=== PATIENT | male | born 1955 | race Caucasian/White ===

== ENCOUNTER 2016-08-11 07:56 | Observation (INO) | payer BC ==
[2016-08-11] MEDS ORDERED: Prochlorperazine TAB* 10 MG PO PRN ×2 (10:26→17:47)
[2016-08-11] MEDS ORDERED: LORazepam TAB(*) 0.5 MG PO PRN (10:26)
[2016-08-11] MEDS ORDERED: Acetaminophen TAB* 325 MG PO PRN (10:26)
[2016-08-11] MEDS ORDERED: Ondansetron TAB* 4 MG PO PRN (10:26)
[2016-08-11] MEDS ORDERED: Temazepam CAP* 15 MG PO PRN (10:30)
[2016-08-11] MEDS ORDERED: Enoxaparin(*) 40 MG/0.4 ML SYR SUBCUT SCH (11:00)
[2016-08-11] MEDS ORDERED: NS 0.9% IVPB ONE (14:00)
[2016-08-11] MEDS ORDERED: IFOSFAMIDE IVPB ONE (14:00)
[2016-08-11] MEDS ORDERED: MESNA IVPB ONE (14:00)
[2016-08-11] MEDS: Enoxaparin(*) 40 MG/0.4 ML SYR SUBCUT SCH (15:22)
[2016-08-11] MEDS ORDERED: Ondansetron INJ* 2 MG/ML VIAL IV PRN (17:47)
[2016-08-11] MEDS: Simethicone TAB* 80 MG TAB.CHEW PO PRN (20:58)
[2016-08-11] MEDS: NS 0.9% 1000 ML* 1,000 ML IV SCH (20:59)
[2016-08-12] MEDS ORDERED: Prochlorperazine TAB* 10 MG PO PRN (04:35)
[2016-08-12] MEDS: NS 0.9% 1000 ML* 1,000 ML IV SCH ×2 (04:44→11:28)
[2016-08-12 06:18] LABS: Hematocrit 34 % (42-52); Hemoglobin 11.7 g/dl (14.0-18.0); Mean Corpuscular HGB Conc 34 g/dl (31-36); Mean Corpuscular Hemoglobin 29 pg (27-31); Mean Corpuscular Volume 85 fL (80-94); Mean Platelet Volume 7 um3 (7.4-10.4); Red Blood Count 4.02 10^6/ul (4.0-5.4); Red Cell Distribution Width 15 % (10.5-15); White Blood Count 4.6 10^3/ul (3.5-10.8)
[2016-08-12 06:42] LABS: Albumin 3.4 g/dL (3.2-5.2); BUN/Creatinine Ratio 18.7 (8-20); EGFR African American 109.3 (>60); Globulin 1.8 g/dL (2-4); Potassium 3.8 mmol/L (3.5-5.0); Total Bilirubin 0.7 mg/dL (0.2-1.0); Total Protein 5.2 g/dL (6.4-8.9)
[2016-08-12] MEDS ORDERED: Allopurinol TAB* 100 MG PO SCH (09:00)
[2016-08-12] MEDS ORDERED: Sertraline* 50 MG TAB PO SCH (09:00)
[2016-08-12] MEDS ORDERED: Lisinopril TAB* 10 MG PO SCH (09:00)
--- NOTE | 2016-08-12 09:42 | PN ---
Progress Note - Progress Note SOAP: DISCHARGE NOTE Subjective: [Doing well and tolerated chemotherapy last night. Mild nausea. Did not sleep well. No fevers. Acetaminophen (Tylenol Tab*) 650 mg PO BID PRN PRN Reason: PAIN Allopurinol (Zyloprim Tab*) 100 mg PO DAILY [facility] Enoxaparin Sodium (Lovenox(*)) 40 mg SUBCUT 1500 ANAID Last Admin: 08/11/16 15:22 Dose: 40 mg Ifosfamide 13,700 mg/ Mesna 13 (,700 mg/ Sodium Chloride) 1,000 mls @ 41.667 mls/hr IVPB ONCE ONE Stop: 08/12/16 13:59 Last Admin: 08/11/16 14:30 Dose: 41.667 mls/hr Etoposide 762 mg/ Sodium (Chloride) 788.1 mls @ 788.1 mls/hr IVPB ONCE ONE Stop: 08/12/16 14:59 Dexamethasone Sodium Phosphate (8 mg/ Sodium Chloride) 52 mls @ 156 mls/hr IVPB ONCE ONE Stop: 08/12/16 11:19 Sodium Chloride (Ns 0.9% 1000 Ml*) 1,000 mls @ 1,000 mls/hr IV .POST IFOS/ MESNA ONE Stop: 08/12/16 11:59 Sodium Chloride (Ns 0.9% 1000 Ml*) 1,000 mls @ 150 mls/hr IV .PER RATE ANAID PRN Reason: Protocol Last Admin: 08/12/16 04:44 Dose: 150 mls/hr Lisinopril (Prinivil Tab*) 10 mg PO DAILY [facility] Lorazepam (Ativan Tab(*)) 0.5 mg PO BID PRN PRN Reason: ANXIETY Ondansetron HCl (Zofran Tab*) 4 mg PO Q6HR PRN PRN Reason: NAUSEA Ondansetron HCl (Zofran Inj*) 8 mg IV Q8H PRN PRN Reason: NAUSEA/VOMITING Prochlorperazine (Compazine Tab*) 10 mg PO Q6H PRN PRN Reason: NAUSEA/VOMITING Sertraline HCl (Zoloft*) 50 mg PO DAILY [facility] Simethicone (Mylicon*) 80 mg PO Q6H PRN PRN Reason: INDIGESTION Last Admin: 08/11/16 20:58 Dose: 80 mg Temazepam (Restoril Cap*) 15 mg PO BEDTIME PRN PRN Reason: INSOMNIA Objective: [] Vital Signs Temp Pulse Resp BP Pulse Ox 98.1 F 56 16 164/84 100 08/12/16 08:18 08/12/16 03:45 08/12/16 03:45 08/12/16 03:45 08/12/16 03:45 HEENT - Mucosa moist CTA RRR S1S2 Obese, non tender No edema Neuro non focal Assessment: []Doing well today and will complete therapy at 5 pm Plan: []1. Discharge after etoposide and hydration 2. Neupogen tomorrow, has had instruction 3. Follow up Monday.
[2016-08-12] MEDS ORDERED: Dexamethasone IV* 8 MG in NS 0.9% 50 ML* 50 ML IVPB ONE (11:00)
[2016-08-12] MEDS ORDERED: NS 0.9% 1000 ML* 1,000 ML IV ONE (11:00)
[2016-08-12] MEDS ORDERED: Dexamethasone IV* 4 MG/ML 1 ML (4 MG) ONE (11:25)
[2016-08-12] MEDS ORDERED: ETOPOSIDE IVPB ONE ×2 (14:00→15:00)
[2016-08-12] MEDS ORDERED: NS 0.9% IVPB ONE ×2 (14:00→15:00)
[2016-08-12] MEDS: Enoxaparin(*) 40 MG/0.4 ML SYR SUBCUT SCH (14:48)
[2016-08-12] MEDS: Simethicone TAB* 80 MG TAB.CHEW PO PRN (14:49)
[2016-08-12 16:57] VITALS: BP 151/85
--- NOTE | 2016-08-13 05:56 | DS ---
DISCHARGE SUMMARY: DATE OF ADMISSION: 08/11/16 DATE OF DISCHARGE: 08/12/16 DISCHARGE DIAGNOSES: 1. RICE chemotherapy. 2. Recurrent diffuse large B-cell lymphoma. HOSPITAL COURSE: He came in for the overnight infusion of ifosfamide, mesna, and carboplatin as par t of his RICE regimen. He had been treated with rituximab on day -2, then etoposide yesterday, demario early was followed by admission for ifosfamide and carboplatin overnight. He will finish around 2:30 p. m. and then have his last dose of etoposide this evening. PLAN: He will be discharged around 5:30 p.m. He will start taking Neupogen tomorrow morning. He tolerated chemotherapy overnight well. No complications. Minor nausea. DISCHARGE MEDICATIONS: 1. Allopurinol 100 mg p.o. daily. 2. Compazine 10 mg q. 6 p.r.n. 3. Zofran 4 mg q. 6 p.r.n. 4. Zoloft 50 mg p.o. daily. 5. Lorazepam 0.5 mg q. 6 p.r.n. anxiety. 6. Lisinopril 10 mg p.o. daily. 7. Neupogen 490 mcg p.o. daily from the to the . FOLLOWUP: Followup will be with me on 08/16/16, 2:20 p.m. at our [place] office. Over the weekend, she should call with any questions or concerns. [id number]/[facility] #: [id number]
== END 2016-08-12 18:00 | disposition home or self-care (01) ==
LOC: INTOOBSV 13:29 → MED 13:29
PROVIDERS: ADMIT Internal Medicine Hematology & Oncology; ATTEND Internal Medicine Hematology & Oncology
DX: C83.30 Diffuse large B-cell lymphoma, unspecified site (principal); Z88.1 Allergy status to other antibiotic agents; F32.9 Major depressive disorder, single episode, unspecified; E66.9 Obesity, unspecified; G47.30 Sleep apnea, unspecified
CPT/HCPCS: 36415; 80053; 85025; 96375; 96413; 96417; 99217; 99220; 99226; A9270-GY; G0378; J1100; J1650; J2405; J9181; J9209; J9280; Q0164

== ENCOUNTER 2016-08-20 14:41 | Inpatient (IN) | payer BC ==
[2016-08-20 16:46] LABS: Hematocrit 37 % (42-52); Hemoglobin 12.5 g/dl (14.0-18.0); Mean Corpuscular HGB Conc 34 g/dl (31-36); Mean Corpuscular Hemoglobin 28 pg (27-31); Mean Corpuscular Volume 83 fL (80-94); Mean Platelet Volume 8 um3 (7.4-10.4); Red Blood Count 4.44 10^6/ul (4.0-5.4); Red Cell Distribution Width 14 % (10.5-15); White Blood Count 0.5 10^3/ul (3.5-10.8)
[2016-08-20 17:00] LABS: Albumin 4.2 g/dL (3.2-5.2); BUN/Creatinine Ratio 13.7 (8-20); C Reactive Protein 149.66 mg/L (< 5.00); Calcium 8.8 mg/dL (8.6-10.3); EGFR Non-African American 80.9 (>60); Globulin 2.6 g/dL (2-4); Potassium 3.2 mmol/L (3.5-5.0); Total Bilirubin 0.7 mg/dL (0.2-1.0); Total Protein 6.8 g/dL (6.4-8.9)
[2016-08-20 17:01] LABS: Troponin I 0.01 ng/mL (<0.04)
[2016-08-20] MEDS ORDERED: Potassium Chlor TAB* 20 MEQ TAB.ER PO ONE (17:02)
[2016-08-20 17:20] LABS: Urine Bacteria Absent (Absent); Urine Bilirubin Negative (Negative); Urine Glucose 1+(50 mg/dL) (Negative); Urine Nitrite Negative (Negative)
[2016-08-20 17:21] LABS: Comments Flag Yes
[2016-08-20 17:22] LABS: Add Diff/Slide Review? Slide Review Added
--- NOTE | 2016-08-20 17:22 | RAD ---
INDICATION: Fever since this afternoon. Cough. Respiratory disease and cardiac disease. COMPARISON: June 29, 2016 CT. TECHNIQUE: Dual energy PA and routine lateral views of the chest were obtained. REPORT: Mildly elevated lung volumes. Mild prominence of the interstitial markings. No alveolar consolidation, focal pulmonary lesion, pleural effusion, pneumothorax. The heart, pulmonary vasculature, and mediastinal contours are unremarkable. Thoracic degenerative spondylosis. IMPRESSION: Stigmata of probable chronic obstructive pulmonary disease. No acute cardiopulmonary process evident.
[2016-08-20] MEDS ORDERED: cefTAZidime 2 GM in NS 0.9% 100 ML* 100 ML IVPB ONE (17:29)
--- NOTE | 2016-08-20 17:34 | ED ---
Abelardo Najera Karl, scribed for Wilfredo Chapman MD on 08/20/16 at 1548 . HPI Febrile Illness - HPI Summary HPI Summary: 60 y/o M presents with c/o a fever and runny nose that began this afternoon. Pt reported that he is a cancer pt with Dr. Cordoba and has had a fever (t-max: 102.2 F) since this afternoon so he was told to report to the ED. Pt stated he finished his last chemo treatment 1 week ago and that he tool Tylenol at 12:30 to control his fever. Pt denied diarrhea and abd pain. Hx: HTN, large B-cell Lymphoma. - History of Current Complaint Chief Complaint: EDFever Time Seen by Provider: 08/20/16 15:44 Hx Obtained From: Patient Onset/Duration: Started Days Ago, Atraumatic, Still Present Timing: Constant Initial Severity: Mild Current Severity: Mild Pain Intensity: 0 - pain Pain Scale Used: 0-10 Numeric Aggravating Factors: Unknown Alleviating Factors: OTC Medicine - Tylenol - Additional Pertinent History Primary Care Physician: VIJAY - Allergy/Home Medications Allergies/Adverse Reactions: Allergies Allergy/AdvReac Type Severity Reaction Status Date / Time Ciprofloxacin Allergy Unknown Unknown Verified 08/20/16 15:01 Reaction Details PMH/Surg Hx/FS Hx/Imm Hx Previously Healthy: No Endocrine/Hematology History: Reports: Hx Bone Marrow Disease - 2009 & 2012, CHEMO Denies: Hx Diabetes Cardiovascular History: Reports: Hx Hypertension - ON DAILY MEDS, Other Cardiovascular Problems/Disorders - DX'D W/HEART MURMUR A CHILD, NO SX Respiratory History: Reports: Hx Sleep Apnea - Cpap History: Denies: Hx Dialysis, Hx Renal Disease Musculoskeletal History: Reports: Hx Arthritis - OSTEOARTHRITIS: KNEES, BACK Sensory History: Reports: Hx Contacts or Glasses Opthamlomology History: Reports: Hx Contacts or Glasses Neurological History: Reports: Other Neuro Impairments/Disorders - 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 2012 UPPER RT ARM BIOPSY, POWERPORT INSERSION. 05/2016 POWER PORT REMOVED [facility] Hx Anesthesia Reactions: No - 1999 WOKE UP WITH LOW BP Infectious Disease History: No Infectious Disease History: Denies: Traveled Outside the [place] in Last 30 Days - Family History Known Family History: Positive: Other - [place] - Social History Alcohol Use: Rare Alcohol Amount: USUALLY 1-2 /WK Substance Use Type: Reports: None Hx Tobacco Use: Yes Smoking Status (MU): Former Smoker Type: Cigarettes Amount Used/How Often: 1PPD 20 YRS Have You Smoked in the Last Year: No Review of Systems Positive: Fever - T-max 102.2 F Eyes: Negative Positive: Nasal Discharge Cardiovascular: Negative Respiratory: Negative Negative: Abdominal Pain, Diarrhea Genitourinary: Negative Musculoskeletal: Negative Skin: Negative Neurological: Negative Psychological: Normal All Other Systems Reviewed And Are Negative: Yes Physical Exam - Summary Physical Exam Summary: VITAL SIGNS: Reviewed. GENERAL: Patient is an obese male who is lying comfortable in the stretcher. Patient is not in any acute respiratory distress. HEAD AND FACE: No signs of trauma. No ecchymosis, hematomas or skull depressions. No sinus tenderness. EYES: PERRLA, EOMI x 2, No injected conjunctiva, no nystagmus. EARS: Hearing grossly intact. Ear canals and tympanic membranes are within normal limits. MOUTH: Oropharynx within normal limits. NECK: Supple, trachea is midline, no adenopathy, no JVD, no carotid bruit, no c- spine tenderness, neck with full ROM. CHEST: Symmetric, no tenderness at palpation LUNGS: Clear to auscultation bilaterally. No wheezing or crackles. CVS: Regular rate and rhythm, S1 and S2 present, no murmurs or gallops appreciated. ABDOMEN: Soft, non-tender. No signs of distention. No rebound no guarding, and no masses palpated. Bowel sounds are normal. EXTREMITIES: FROM in all major joints, no edema, no cyanosis or clubbing. NEURO: Alert and oriented x 3. No acute neurological deficits. Speech is normal and follows commands. SKIN: Dry and warm Triage Information Reviewed: Yes Vital Signs On Initial Exam: Initial Vitals Temp Pulse Resp BP Pulse Ox 97.8 F 81 18 155/88 100 08/20/16 14:45 08/20/16 14:45 08/20/16 14:45 08/20/16 14:45 08/20/16 14:45 Vital Signs Reviewed: Yes Diagnostics - Vital Signs Vital Signs Temp Pulse Resp BP Pulse Ox 08/20/16 14:45 97.8 F 81 18 155/88 100 - Laboratory Lab Results: Lab Results 08/20/16 08/20/16 Range/Units 16:22 16:22 Sodium 132 L (133-145) mmol/L Potassium 3.2 L (3.5-5.0) mmol/L Chloride 97 L (101-111) mmol/L Carbon Dioxide 28 (22-32) mmol/L Anion Gap 7 (2-11) mmol/L BUN 13 (6-24) mg/dL Creatinine 0.95 (0.67-1.17) mg/dL Est GFR ( Amer) 104.0 (>60) Est GFR (Non-Af Amer) 80.9 (>60) BUN/Creatinine Ratio 13.7 (8-20) Glucose 113 H (70-100) mg/dL Lactic Acid 1.5 (0.5-2.0) mmol/L Calcium 8.8 (8.6-10.3) mg/dL Total Bilirubin 0.70 (0.2-1.0) mg/dL AST 19 (13-39) U/L ALT 44 (7-52) U/L Alkaline Phosphatase 66 (34-104) U/L Troponin I 0.01 (<0.04) ng/mL C-Reactive Protein 149.66 H (< 5.00) mg/L Total Protein 6.8 (6.4-8.9) g/dL Albumin 4.2 (3.2-5.2) g/dL Globulin 2.6 (2-4) g/dL Albumin/Globulin Ratio 1.6 (1-3) Result Diagrams: 08/20/16 16:22 08/20/16 16:22 Lab Statement: Any lab studies that have been ordered have been reviewed, and results considered in the medical decision making process. - Radiology CXR Xray Interpretation: Positive (See Comments) Radiology Interpretation Completed By: Radiologist - IMPRESSION: Stigmata of probable chronic obstructive pulmonary disease. No acute cardiopulmonary process evident. Course/Dx - Course Assessment/Plan: 60 y/o M presents with c/o a fever and runny nose that began this afternoon. Pt reported that he is a cancer pt with Dr. Cordoba and has had a fever (t-max: 102.2 F) since this afternoon so he was told to report to the ED. Pt stated he finished his last chemo treatment 1 week ago and that he tool Tylenol at 12:30 to control his fever. Pt denied diarrhea and abd pain. Hx: HTN , large B-cell Lymphoma. Blood work shows a WBCs 0.5, H/H 12.5 / 37, platelets 54 and neutrophils 0.1. Na 132, K+ 3.2 and CRP 149.66. Influenza A and B are negative. CXR impression: Stigmata for COPD. I discussed the case with Dr. Cano (Oncology) and he will be admitting the patient to his services for further assessment. He was given Ceftazidime 2 gm IV. Neutropenia precautions were initiated. Patient is hemodynamically stable and alert and oriented x 3. - Febrile Illness Differential Diagnoses: Bacteremia, Fever of Unknown Origin, Pneumonia - Diagnoses Provider Diagnoses: Fever, Neutropenia - Provider Notifications Discussed Care Of Patient With: Dr. Cano (HemOn) at 17:30 who agreed to accept the pt. Discharge - Discharge Plan Condition: Stable Disposition: ADMITTED TO [facility] Referrals: Obinna Cano MD [Primary Care Provider] - The documentation as recorded by the Abelardo dubois Karl accurately reflects the service I personally performed and the decisions made by me, Wilfredo Chapman MD.
[2016-08-20] MEDS ORDERED: LORazepam TAB(*) 0.5 MG PO PRN (17:49)
[2016-08-20] MEDS ORDERED: Prochlorperazine TAB* 10 MG PO PRN (17:49)
[2016-08-20] MEDS ORDERED: Ondansetron TAB* 4 MG PO PRN (17:49)
[2016-08-20] MEDS ORDERED: Acetaminophen TAB* 325 MG PO PRN (17:50)
[2016-08-20] MEDS ORDERED: FILGRASTIM-SNDZ* 480 MCG/0.8 ML SYRINGE SUBCUT SCH (18:00)
[2016-08-20] MEDS: NS 0.9% w/ 40 Meq KCL 1000 ML* 1,000 ML IVPB SCH ×2 (18:16)
[2016-08-20 18:19] LABS: Erythrocyte Sed Rate 32 mm/Hr (0-20)
[2016-08-20] MEDS: Enoxaparin(*) 40 MG/0.4 ML SYR SUBCUT SCH (18:22)
[2016-08-20] MEDS: traZODone TAB* 50 MG TAB PO SCH (21:21)
--- NOTE | 2016-08-20 23:33 | HP ---
HISTORY AND PHYSICAL: DATE OF ADMISSION: 08/20/16 CHIEF COMPLAINT: Neutropenic fever. HISTORY OF PRESENT ILLNESS: A 60-year-old male with recurrent diffuse large B- cell lymphoma, status post RICE chemotherapy cycle 1, day 10. He tolerated his chemotherapy reasonably well and had been taking Neupogen 480 mcg at home daily. This morning he was feeling a little more fatigued. He felt flushed this afternoon, took his temperature, it was 101.9. He retook it; it is 99.2. He called and I told him to come to the emergency room. No cough, no shortness of breath, no urinary symptoms, eating well, no mouth sores, no diarrhea or upset stomach. He has not had any skin rashes or lesions. On presentation, he was found to have a white blood cell count of 0.5 with an ANC 0.1, platelets 54, 000, and hemoglobin 12.5. Urine with +1 protein, +1 white blood cells, and chest x-ray consistent with COPD, but no acute infiltrate. PAST MEDICAL HISTORY: 1. Depression. 2. Obesity. 3. Sleep apnea. 4. Hypertension. 5. Insulin resistance. CURRENT MEDICATIONS: 1. Extra Strength Tylenol p.r.n. for pain. 2. Allopurinol 100 mg p.o. daily. 3. Compazine 10 mg q.6 p.r.n. nausea. 4. Lisinopril 10 mg a day. 5. Lorazepam 0.5 mg b.i.d. 6. Zofran p.r.n. ALLERGIES: CIPROFLOXACIN. FAMILY HISTORY: Brother and father both have lymphoma. Father had prostate cancer. Father is living and well, brother of malignancy of cancer. Sister with malignancy, question of bladder cancer, had radiation and surgery. He has 2 children, are healthy. SOCIAL HISTORY: He is . He lives in [place], currently being helped by his parents. He has been back and forth to [place]. Two children. He does not smoke. He does not drink. REVIEW OF SYSTEMS: General: No distress. Fever. No night sweats. HEENT: Negative. Respiratory: Orthopnea at home, otherwise negative. Cardiac: Negative. GI: Negative. : Negative. Musculoskeletal: Some minor joint pains. No change recently. Lymphatic/Hematologic: Low blood counts and on G- CSF. Neurologic: Negative. Skin: Negative. PHYSICAL EXAMINATION VITAL SIGNS: No distress. Temperature 97.8, pulse 81, respirations 18, blood pressure 138/76. HEENT: Mucosa moist. No lesions. No cervical or supraclavicular adenopathy. LUNGS: Clear to auscultation bilaterally. Some decreased breath sounds, no wheezing. HEART: Regular rhythm. S1, S2. No murmurs, rubs, or gallops. ABDOMEN: Nontender, nondistended. No hepatosplenomegaly. EXTREMITIES: No clubbing, cyanosis, or edema. SKIN: Exam not performed. NEUROLOGIC: Grossly nonfocal and strength 5/5 throughout. Conversational, did not walk him. LABORATORY DATA: CBC as noted above. Chemistry shows sodium 132, potassium 3.2, glucose 113, creatinine 0.95, and chest x-ray as noted above. ASSESSMENT AND PLAN: A 60-year-old male status post RICE chemotherapy, now presents with neutropenic fever. He is on day 10 and I expect his white counts to increase. 1. Neutropenic fever. Ceftazidime 2 g IV q.8. We will give his last Neupogen tonight and then he is done. Check CBC in the morning. 2. We will continue his allopurinol from home, hold his lisinopril and put him on Tylenol plus oxycodone for pain. Trazodone sleeping and will continue his lorazepam for anxiety. 3. Hyponatremia, we will give normal saline at 125 an hour and supplement potassium for the first liter. 4. We will consult Respiratory to set him up with CPAP overnight. 5. Chemotherapy currently scheduled for next Monday, we will stay on schedule if possible. 6. Full code. [id number]/[facility] #: [id number] MTDD
[2016-08-21] MEDS: cefTAZidime 2 GM in NS 0.9% 100 ML* 100 ML IVPB SCH ×3 (01:57→17:39)
[2016-08-21] MEDS: NS 0.9% w/ 40 Meq KCL 1000 ML* 1,000 ML IVPB SCH ×6 (03:55→22:11)
[2016-08-21 07:48] LABS: Hematocrit 29 % (42-52); Hemoglobin 9.9 g/dl (14.0-18.0); Mean Corpuscular HGB Conc 34 g/dl (31-36); Mean Corpuscular Hemoglobin 28 pg (27-31); Mean Corpuscular Volume 83 fL (80-94); Mean Platelet Volume 8 um3 (7.4-10.4); Red Blood Count 3.51 10^6/ul (4.0-5.4); Red Cell Distribution Width 14 % (10.5-15); White Blood Count 0.7 10^3/ul (3.5-10.8)
[2016-08-21 07:58] LABS: Albumin 3.2 g/dL (3.2-5.2); BUN/Creatinine Ratio 12.2 (8-20); Calcium 7.9 mg/dL (8.6-10.3); EGFR African American 123.3 (>60); EGFR Non-African American 95.8 (>60); Globulin 2.1 g/dL (2-4); Potassium 3.6 mmol/L (3.5-5.0); Total Bilirubin 0.5 mg/dL (0.2-1.0); Total Protein 5.3 g/dL (6.4-8.9)
[2016-08-21 08:06] LABS: Comments Flag Yes
[2016-08-21 08:07] LABS: Add Diff/Slide Review? Slide Review Added
[2016-08-21] MEDS ORDERED: NS 0.9% 100 ML* 100 ML ONE (09:48)
[2016-08-21] MEDS: Allopurinol TAB* 100 MG PO SCH (09:50)
--- NOTE | 2016-08-21 15:31 | PN ---
Subjective Date of Service: 08/21/16 Interval History: No chills, sweats. Mild loose stools. No pain. No sx's. No new c/o. Pt had no sx's at home, was checking his temp routinely 4 -5 times a day Objective Active Medications: Acetaminophen (Tylenol Tab*) 650 mg PO Q4H PRN PRN Reason: PAIN Allopurinol (Zyloprim Tab*) 100 mg PO DAILY [facility] Last Admin: 08/21/16 09:50 Dose: 100 mg Enoxaparin Sodium (Lovenox(*)) 40 mg SUBCUT Q24H [facility] Last Admin: 08/20/16 18:22 Dose: 40 mg Potassium Chloride/Sodium Chloride (Ns 0.9% W/ 40 Meq Kcl 1000 Ml*) 1,000 mls @ 125 mls/hr IVPB .PER RATE [facility] Stop: 08/23/16 17:44 Last Admin: 08/21/16 13:14 Dose: 125 mls/hr Ceftazidime 2 gm/ Sodium (Chloride) 100 mls @ 200 mls/hr IVPB Q8H [facility] Last Admin: 08/21/16 09:50 Dose: 200 mls/hr Lorazepam (Ativan Tab(*)) 0.5 mg PO BID PRN PRN Reason: ANXIETY Ondansetron HCl (Zofran Tab*) 4 mg PO Q6HR PRN PRN Reason: NAUSEA Prochlorperazine (Compazine Tab*) 10 mg PO Q6H PRN PRN Reason: NAUSEA Trazodone HCl (Desyrel Tab*) 50 mg PO BEDTIME [facility] Last Admin: 08/20/16 21:21 Dose: Not Given Vital Signs 08/20/16 08/20/16 08/20/16 18:00 18:13 20:00 Temperature Pulse Rate 75 73 Respiratory 16 Rate Blood Pressure 155/84 (mmHg) O2 Sat by Pulse 100 100 Oximetry 08/20/16 08/20/16 08/20/16 20:13 20:40 23:13 Temperature 99.2 F 98.4 F Pulse Rate 74 79 Respiratory 16 16 16 Rate Blood Pressure 147/61 138/62 (mmHg) O2 Sat by Pulse 100 99 Oximetry 08/21/16 08/21/16 08/21/16 03:18 07:49 08:00 Temperature 98.7 F 98.0 F Pulse Rate 74 74 Respiratory 16 20 18 Rate Blood Pressure 137/62 143/69 (mmHg) O2 Sat by Pulse 98 99 Oximetry 08/21/16 11:15 Temperature 98.7 F Pulse Rate 74 Respiratory 17 Rate Blood Pressure 146/56 (mmHg) O2 Sat by Pulse 99 Oximetry Oxygen Devices in Use Now: None Appearance: Supine in bed. In good spirits. Looks comfortable. Eyes: No Scleral Icterus Abdominal: NL Sounds; No Tenderness; No Distention, No Hepatosplenomegaly, - Extremities: No Edema, No Clubbing, Cyanosis, - Skin: No Rash or Ulcers, No Nodules or Sclerosis, - Neurological: Alert and Oriented x 3, NL Sensation Result Diagrams: 08/21/16 07:19 08/21/16 07:19 Additional Lab and Data: Lab Results 08/20/16 08/20/16 Range/Units 16:22 16:22 Sodium 132 L (133-145) mmol/L Potassium 3.2 L (3.5-5.0) mmol/L Chloride 97 L (101-111) mmol/L Carbon Dioxide 28 (22-32) mmol/L Anion Gap 7 (2-11) mmol/L BUN 13 (6-24) mg/dL Creatinine 0.95 (0.67-1.17) mg/dL Est GFR ( Amer) 104.0 (>60) Est GFR (Non-Af Amer) 80.9 (>60) BUN/Creatinine Ratio 13.7 (8-20) Glucose 113 H (70-100) mg/dL Lactic Acid 1.5 (0.5-2.0) mmol/L Calcium 8.8 (8.6-10.3) mg/dL Total Bilirubin 0.70 (0.2-1.0) mg/dL AST 19 (13-39) U/L ALT 44 (7-52) U/L Alkaline Phosphatase 66 (34-104) U/L Troponin I 0.01 (<0.04) ng/mL C-Reactive Protein 149.66 H (< 5.00) mg/L Total Protein 6.8 (6.4-8.9) g/dL Albumin 4.2 (3.2-5.2) g/dL Globulin 2.6 (2-4) g/dL Albumin/Globulin Ratio 1.6 (1-3) Assess/Plan/Problems-Billing Assessment: - Patient Problems (1) Bacteremia Current Visit: Yes Status: Acute Code(s): R78.81 - BACTEREMIA SNOMED Code( s): 7955643 Comment: Sens pending. Clinically responding well to cetazidime, continue same. (2) Pancytopenia Current Visit: Yes Status: Acute Code(s): D61.818 - OTHER PANCYTOPENIA SNOMED Code(s): 457050423 Comment: Due to RICE chemo. This was the first cycle of this regimen. WBC and ANC higher 2/5. Daily CBC ordered. (3) Lymphoma Current Visit: Yes Status: Acute Comment: Management per [facility]. Pt has abdominal lymphoma. (4) Morbid obesity Current Visit: Yes Status: Acute Code(s): E66.01 - MORBID (SEVERE) OBESITY DUE TO EXCESS CALORIES SNOMED Code(s): 994391143 Comment: BMI 51.7.
[2016-08-21] MEDS: Enoxaparin(*) 40 MG/0.4 ML SYR SUBCUT SCH (17:40)
[2016-08-21] MEDS: traZODone TAB* 50 MG TAB PO SCH (19:22)
[2016-08-22] MEDS: cefTAZidime 2 GM in NS 0.9% 100 ML* 100 ML IVPB SCH (02:18)
[2016-08-22 06:47] LABS: Comments Flag Yes; Hematocrit 28 % (42-52); Hemoglobin 9.5 g/dl (14.0-18.0); Mean Corpuscular HGB Conc 34 g/dl (31-36); Mean Corpuscular Hemoglobin 28 pg (27-31); Mean Corpuscular Volume 83 fL (80-94); Mean Platelet Volume 8 um3 (7.4-10.4); Red Blood Count 3.36 10^6/ul (4.0-5.4); Red Cell Distribution Width 14 % (10.5-15)
[2016-08-22 06:48] LABS: Add Diff/Slide Review? Slide Review Added; White Blood Count 1.7 10^3/ul (3.5-10.8)
[2016-08-22] MEDS: Allopurinol TAB* 100 MG PO SCH (09:30)
--- NOTE | 2016-08-22 09:31 | PN ---
Progress Note - Progress Note SOAP: Subjective: [Anxious to go home .Denies fever or chills . Bowels are good.denies nausea or vomiting.] Objective: [HEENT white exudate on tongue LUNG CTA COR RRR Abdomen BS X 4 qud ads, obese , NT EXR trace edema Vital Signs Temp Pulse Resp BP Pulse Ox 98.1 F 74 18 154/74 98 08/22/16 03:26 08/22/16 03:26 08/22/16 07:25 08/22/16 03:26 08/22/16 03:26 Acetaminophen (Tylenol Tab*) 650 mg PO Q4H PRN PRN Reason: PAIN Allopurinol (Zyloprim Tab*) 100 mg PO DAILY [facility] Last Admin: 08/21/16 09:50 Dose: 100 mg Amoxicillin/Clavulanate Potassium (Augmentin Tab*) 875 mg PO BID [facility] Enoxaparin Sodium (Lovenox(*)) 40 mg SUBCUT Q24H [facility] Last Admin: 08/21/16 17:40 Dose: 40 mg Potassium Chloride/Sodium Chloride (Ns 0.9% W/ 40 Meq Kcl 1000 Ml*) 1,000 mls @ 125 mls/hr IVPB .PER RATE [facility] Stop: 08/23/16 17:44 Last Admin: 08/21/16 22:11 Dose: 125 mls/hr Lorazepam (Ativan Tab(*)) 0.5 mg PO BID PRN PRN Reason: ANXIETY Ondansetron HCl (Zofran Tab*) 4 mg PO Q6HR PRN PRN Reason: NAUSEA Prochlorperazine (Compazine Tab*) 10 mg PO Q6H PRN PRN Reason: NAUSEA Trazodone HCl (Desyrel Tab*) 50 mg PO BEDTIME [facility] Last Admin: 08/21/16 19:22 Dose: Not Given Laboratory Results - last 24 hr 08/22/16 06:15 WBC 1.7 L RBC 3.36 L Hgb 9.5 L Hct 28 L MCV 83 MCH 28 MCHC 34 RDW 14 Plt Count 18 L MPV 8 Neut % (Auto) 73.5 Lymph % (Auto) 15.5 L [place] % (Auto) 10.2 H Eos % (Auto) 0.1 Baso % (Auto) 0.7 Absolute Neuts (auto) 1.2 L Absolute Lymphs (auto) 0.3 L Absolute Monos (auto) 0.2 Absolute Eos (auto) 0 Absolute Basos (auto) 0 Absolute Nucleated RBC 0 Nucleated RBC % 0.2 Current Active Problems Bacteremia (Acute) R78.81 Sens pending. Clinically responding well to cetazidime, continue same. Lymphoma (Acute) Management per KIERAN. Pt has abdominal lymphoma. Morbid obesity (Acute) E66.01 BMI 51.7. Pancytopenia (Acute) D61.818 Due to RICE chemo. This was the first cycle of this regimen. WBC and ANC higher 2/5. Daily CBC ordered. Laboratory Results - last 24 hr 08/22/16 06:15 WBC 1.7 L RBC 3.36 L Hgb 9.5 L Hct 28 L MCV 83 MCH 28 MCHC 34 RDW 14 Plt Count 18 L MPV 8 Neut % (Auto) 73.5 Lymph % (Auto) 15.5 L [place] % (Auto) 10.2 H Eos % (Auto) 0.1 Baso % (Auto) 0.7 Absolute Neuts (auto) 1.2 L Absolute Lymphs (auto) 0.3 L Absolute Monos (auto) 0.2 Absolute Eos (auto) 0 Absolute Basos (auto) 0 Absolute Nucleated RBC 0 Nucleated RBC % 0.2 Microbiology ECOLI in Blood cultures resistent ot tetracyclines] Assessment: [60 yo male with Follicular Lymphoma s/p RICE chemotherapy Day 12 a/w neutropenic fever . ECOLI bacteremia . Hyponatremia recovering with Fluids Morbid obesity on CPAP VTE PPx contraindicated 2/2 low platlets 18K Full code] Plan: [Change Antibiotic to PO augmentin 875mg BID Watch for bleeding Continue CPAP Home soon.]
[2016-08-22] MEDS: NS 0.9% w/ 40 Meq KCL 1000 ML* 1,000 ML IVPB SCH ×4 (11:01→22:35)
[2016-08-22] MEDS: Enoxaparin(*) 40 MG/0.4 ML SYR SUBCUT SCH (17:39)
[2016-08-22] MEDS: traZODone TAB* 50 MG TAB PO SCH (20:00)
[2016-08-22] MEDS: Amoxicillin/Clavulanate TAB* 875 MG PO SCH (20:05)
[2016-08-23] MEDS: NS 0.9% w/ 40 Meq KCL 1000 ML* 1,000 ML IVPB SCH ×2 (03:21)
[2016-08-23 09:40] LABS: Hematocrit 30 % (42-52); Hemoglobin 10.3 g/dl (14.0-18.0); Mean Corpuscular HGB Conc 34 g/dl (31-36); Mean Corpuscular Hemoglobin 28 pg (27-31); Mean Corpuscular Volume 83 fL (80-94); Mean Platelet Volume 7 um3 (7.4-10.4); Red Blood Count 3.66 10^6/ul (4.0-5.4); Red Cell Distribution Width 15 % (10.5-15); White Blood Count 2.3 10^3/ul (3.5-10.8)
[2016-08-23 09:43] LABS: Comments Flag Yes
[2016-08-23 09:45] LABS: Add Diff/Slide Review? Slide Review Added
[2016-08-23 09:56] LABS: BUN/Creatinine Ratio 11.9 (8-20); Calcium 8.6 mg/dL (8.6-10.3); EGFR African American 119.9 (>60); EGFR Non-African American 93.2 (>60)
[2016-08-23] MEDS: Allopurinol TAB* 100 MG PO SCH (09:56)
[2016-08-23] MEDS: Amoxicillin/Clavulanate TAB* 875 MG PO SCH (10:24)
[2016-08-23 10:54] LABS: Immature Granulocytes 7 % (0-9); Metamyelocytes % 1 % (0-2); Neutrophil % 64 % (38-83); Promyelocytes % 3 %
[2016-08-23 10:55] LABS: Add Path Review? YES
[2016-08-23 18:45] LABS: Mean Platelet Volume 7 um3 (7.4-10.4)
[2016-08-23 18:47] LABS: Comments Flag Yes
[2016-08-23 20:03] VITALS: BP 150/82
--- NOTE | 2016-12-27 03:43 | DS ---
DISCHARGE SUMMARY: DATE OF ADMISSION: 08/20/16 DATE OF DISCHARGE: 08/23/16 DISCHARGE DIAGNOSES: 1. Diffuse large B-cell lymphoma; status post RICE chemotherapy. 2. Neutropenic fever. 3. E. coli bacteremia. 4. Obesity. HOSPITAL COURSE: Mr. Hall came in on day 9 after RICE chemotherapy with neutropenic fever. Culture showed an E. coli bacteremia. He was placed on IV cefepime in the hospital and defervesced. White count recovered fairly quickly. He had a total white count of 0.5 on 08/20/16 with an ANC of 100; on , he had a white count of 2.3 with an ANC of 1.9. He defervesced after day 1 of antibiotics. Overall, has done well in the hospital. Anxious to get home and will be discharged today on oral Augmentin. No studies are pending at the time of discharge. DISCHARGE MEDICATIONS: 1. Augmentin 875 p.o. b.i.d. an additional 7 days. 2. Acetaminophen 500 to 1000 mg as needed. 3. Lisinopril 10 mg daily. 4. Compazine 10 q.6 p.r.n. 5. Ondansetron 4 mg q.6 p.r.n. 6. Lorazepam 0.5 mg twice daily as needed. 7. Complete filgrastim 480 mcg, 2 days left. 8. Allopurinol 100 mg a day. He will stop his allopurinol which he is on at 100 mg today. No additional RICE chemotherapy is planned. Next step will be bone marrow transplant at [facility] with . FOLLOWUP: Follow up next week in clinic with myself, [place] office. [id number]/[facility] #: [id number] [facility]
== END 2016-08-23 19:54 | disposition home or self-care (01) | DRG 660 ==
LOC: ED 14:41 → SSU 17:42
PROVIDERS: ADMIT Internal Medicine Hematology & Oncology; ATTEND Internal Medicine Hematology & Oncology
PROC: 5A09357 Assistance with Respiratory Ventilation, Less than 24 Consecutive Hours, Continuous Positive Airway Pressure (ICD-10-PCS; principal; 2016-08-21)
PROC: 30233R1 Transfusion of Nonautologous Platelets into Peripheral Vein, Percutaneous Approach (ICD-10-PCS; 2016-08-23)
DX: D70.1 Agranulocytosis secondary to cancer chemotherapy (principal); C83.50 Lymphoblastic (diffuse) lymphoma, unspecified site; E88.81 Metabolic syndrome and other insulin resistance; E87.1 Hypo-osmolality and hyponatremia; Z68.43 Body mass index [BMI] 50.0-59.9, adult; T45.1X5A Adverse effect of antineoplastic and immunosuppressive drugs, initial encounter; R50.81 Fever presenting with conditions classified elsewhere; G47.33 Obstructive sleep apnea (adult) (pediatric); F32.9 Major depressive disorder, single episode, unspecified; E66.01 Morbid (severe) obesity due to excess calories; I10 Essential (primary) hypertension; J44.9 Chronic obstructive pulmonary disease, unspecified; Z79.1 Long term (current) use of non-steroidal anti-inflammatories (NSAID); Y92.9 Unspecified place or not applicable; Z79.899 Other long term (current) drug therapy; Z88.1 Allergy status to other antibiotic agents; Z80.7 Family history of other malignant neoplasms of lymphoid, hematopoietic and related tissues; Z80.42 Family history of malignant neoplasm of prostate; Z80.52 Family history of malignant neoplasm of bladder
CPT/HCPCS: 36415; 71020; 80048; 80053; 81003; 81015; 83605; 83880; 84484; 85025; 85049; 85060; 85652; 85730; 86140; 86850; 86900; 86901; 87040; 87077; 87186; 87205; 87502; 94660; 94760; 99223; 99232; 99239; A9270-GY; J0713; J1650; P9035; Q5101 ZA

== ENCOUNTER 2016-08-25 19:52 | Observation (INO) | payer BC ==
--- NOTE | 2016-08-23 21:23 | DS ---
DISCHARGE SUMMARY: DATE OF ADMISSION: 08/20/16 DATE OF DISCHARGE: 08/23/16 DISCHARGE DIAGNOSES: 1. Neutropenic fever: Secondary to E. coli sepsis, resolving. 2. Sepsis: Related to E. coli, on Augmentin now per sensitivities. 3. Diffuse large B-cell lymphoma: Status post cycle 1 RICE, cycle 2 to be delayed x1 week. 4. Hypertension: Resume lisinopril. 5. Sleep apnea: Continue CPAP at night. DISCHARGE MEDICATIONS: 1. Augmentin 875 mg p.o. b.i.d. x10 days. 2. Acetaminophen 500 mg p.o. b.i.d. p.r.n. pain. 3. Lisinopril 10 mg p.o. daily. 4. Prochlorperazine 10 mg p.o. q.6 hours p.r.n. nausea. 5. Ondansetron 4 mg p.o. q.6 hours p.r.n. nausea. 6. Lorazepam 0.5 mg p.o. b.i.d. p.r.n. anxiety. 7. Filgrastim 480 mcg subcu q. cycle per instructions. 8. STOP: Allopurinol HOSPITAL COURSE: Please see admission note for full H and P. However, briefly Mr. Hall is well known to our service due to his recent diagnosis of diffuse large B- cell lymphoma, now status post cycle 1 of RICE chemotherapy. He presented to the ER with a temperature of 101.9, on day 10. During this time, he had no specific symptoms of infection; however, he did have pancytopenia with a question of urine as source. Chest x-ray was negative for infiltrates. At this time, Mr. Hall was admitted for neutropenic fever and provided with broad-spectrum coverage using ceftazidime. Blood cultures were obtained at that time. Blood cultures returned growth with E. coli in 2/4 bottles. Yesterday on 08/22/16, Mr. Hall was transitioned to Augmentin, as he has had adverse reactions to quinolones in the past. Yesterday, Mr. Hall's ANC had also recovered to 1.2; however, with sepsis, it was deemed reasonable to monitor him overnight. This a.m., Mr. Hall's neutrophils have recovered to 1.9. Unfortunately, he has developed significant thrombocytopenia with platelets of 10. Plan has been made to give him 1 single donor pack of platelets and then be discharged home with Augmentin coverage for a total of 14 days of antibiotics. He will repeat his labs tomorrow morning as an outpatient and we will follow up as needed. He will see Dr. Dallas of [place] in consultation on 08/29/16, and then follow up with Dr. Cano locally here on 08/30/16. Plan of care was reviewed at length with Mr. Hall including bleeding precautions and plan moving forward. As mentioned previously, he will be delayed x1 week for cycle 2 due to his E. coli sepsis and thrombocytopenia. Mr. Hall denies further questions and states good understanding of the plan of care. Greater than 40 minutes were spent with greater than 50% [id number]. KALANI MANCUSO, XAIV [id number]/[facility] #: [id number] LIT
[2016-09-01] MEDS ORDERED: Temazepam CAP* 15 MG PO PRN (11:18)
[2016-09-01] MEDS ORDERED: LORazepam TAB(*) 0.5 MG PO PRN (11:21)
[2016-09-01] MEDS ORDERED: Ondansetron TAB* 4 MG PO PRN (11:21)
[2016-09-01] MEDS ORDERED: Acetaminophen TAB* 325 MG PO PRN (11:21)
[2016-09-01] MEDS ORDERED: Prochlorperazine TAB* 10 MG PO PRN (11:21)
[2016-09-01] MEDS ORDERED: MESNA IVPB ONE (14:00)
[2016-09-01] MEDS ORDERED: NS 0.9% IVPB ONE (14:00)
[2016-09-01] MEDS ORDERED: IFOSFAMIDE IVPB ONE (14:00)
[2016-09-01] MEDS: MESNA IVPB ONE ×2 (14:40→19:48)
[2016-09-01] MEDS: IFOSFAMIDE IVPB ONE ×2 (14:40→19:48)
[2016-09-01] MEDS: NS 0.9% IVPB ONE ×2 (14:40→19:48)
[2016-09-01] MEDS ORDERED: Ondansetron INJ* 2 MG/ML VIAL IV PRN (15:31)
[2016-09-01] MEDS: Amoxicillin/Clavulanate TAB* 875 MG PO SCH (19:49)
[2016-09-01] MEDS ORDERED: Senna TAB PO PRN (19:53)
[2016-09-02 05:13] LABS: Hematocrit 28 % (42-52); Hemoglobin 9.4 g/dl (14.0-18.0); Mean Corpuscular HGB Conc 34 g/dl (31-36); Mean Corpuscular Hemoglobin 29 pg (27-31); Mean Corpuscular Volume 85 fL (80-94); Mean Platelet Volume 7 um3 (7.4-10.4); Red Blood Count 3.29 10^6/ul (4.0-5.4); Red Cell Distribution Width 14 % (10.5-15); White Blood Count 5.8 10^3/ul (3.5-10.8)
[2016-09-02 05:43] LABS: Albumin 3.5 g/dL (3.2-5.2); Calcium 8.3 mg/dL (8.6-10.3); EGFR African American 113.6 (>60); EGFR Non-African American 88.3 (>60); Potassium 3.9 mmol/L (3.5-5.0); Total Bilirubin 0.4 mg/dL (0.2-1.0); Total Protein 5.5 g/dL (6.4-8.9)
[2016-09-02] MEDS: Amoxicillin/Clavulanate TAB* 875 MG PO SCH (08:38)
[2016-09-02] MEDS ORDERED: Lisinopril TAB* 10 MG PO SCH (09:00)
--- NOTE | 2016-09-02 10:46 | PN ---
Progress Note - Progress Note SOAP: Subjective: []Doing well, some nausea. Not sleeping well on steroids. Took Compazine this am. Acetaminophen (Tylenol Tab*) 650 mg PO Q6H PRN PRN Reason: PAIN Amoxicillin/Clavulanate Potassium (Augmentin Tab*) 875 mg PO BID [facility] Last Admin: 09/02/16 08:38 Dose: 875 mg Ifosfamide 13,550 mg/ Mesna 13 (,550 mg/ Sodium Chloride) 1,000 mls @ 41.667 mls/hr IVPB ONCE ONE Stop: 09/02/16 13:59 Last Admin: 09/01/16 19:48 Dose: Not Given Etoposide 270 mg/ Sodium (Chloride) 763.5 mls @ 763.5 mls/hr IVPB ONCE ONE Stop: 09/02/16 14:59 Dexamethasone Sodium Phosphate (8 mg/ Sodium Chloride) 52 mls @ 208 mls/hr IVPB ONCE ONE Stop: 09/02/16 14:14 Sodium Chloride (Ns 0.9% 1000 Ml*) 1,000 mls @ 0 mls/hr IV ONCE ONE PRN Reason: Wide Open Stop: 09/02/16 14:01 Lisinopril (Prinivil Tab*) 10 mg PO DAILY [facility] Last Admin: 09/02/16 08:38 Dose: 10 mg Lorazepam (Ativan Tab(*)) 0.5 mg PO Q6H PRN PRN Reason: Anxiety/nausea Ondansetron HCl (Zofran Tab*) 4 mg PO Q6HR PRN PRN Reason: NAUSEA Ondansetron HCl (Zofran Inj*) 4 mg IV Q6H PRN PRN Reason: NAUSEA Prochlorperazine (Compazine Tab*) 10 mg PO Q6H PRN PRN Reason: NAUSEA Last Admin: 09/02/16 04:47 Dose: 10 mg Scopolamine (Transderm-Scop 1.5 Mg Patch*) 1 patch TRANSDERM Q72HR [facility] Senna (Senokot Tab*) 2 tab PO BID PRN PRN Reason: CONSTIPATION Temazepam (Restoril Cap*) 15 mg PO BEDTIME PRN PRN Reason: INSOMNIA Objective: [] Vital Signs Temp Pulse Resp BP Pulse Ox 97.9 F 67 18 129/67 100 09/02/16 07:08 09/02/16 07:08 09/02/16 08:00 09/02/16 07:08 09/02/16 07:08 HEENT - BiPap. No thrush, no LAD CTA RRR S1S2 Obease, NT/ND +BS EXT w/o Edema Assessment: [] Cycle 2 RICE chemotherapy. Follow up 23 hr OBV. No difficulty overnight. Plan: []1. IV anti-emetics today 2. Discharge after completion of infusion. 3. Follow up with PET in 10 days 4. No additional antibiotics 5. Neupogen 480 mcg daily on d/c
[2016-09-02] MEDS ORDERED: Palonosetron* 0.25 MG in NS 0.9% 50 ML* 50 ML IVPB ONE (10:50)
[2016-09-02] MEDS ORDERED: Fosaprepitant IV* 150 MG in NS 0.9% 250 ML* 145 ML IVPB ONE (10:51)
[2016-09-02] MEDS ORDERED: NS 0.9% 1000 ML* 1,000 ML IV SCH (11:45)
[2016-09-02] MEDS ORDERED: Dexamethasone IV* 8 MG in NS 0.9% 50 ML* 50 ML IVPB ONE (14:00)
[2016-09-02] MEDS ORDERED: NS 0.9% 1000 ML* 1,000 ML IV ONE (14:00)
[2016-09-02] MEDS ORDERED: ETOPOSIDE IVPB ONE ×4 (14:00)
[2016-09-02] MEDS ORDERED: NS 0.9% IVPB ONE ×4 (14:00)
[2016-09-02 15:56] VITALS: BP 143/62
--- NOTE | 2016-09-03 01:12 | DS ---
DISCHARGE SUMMARY: ADDENDUM: DATE OF ADMISSION: 09/01/16 DATE OF DISCHARGE: 09/02/16 DISCHARGE DIAGNOSES: 1. Relapse diffuse large B-cell lymphoma. 2. RICE chemotherapy. 3. Nausea. HOSPITAL COURSE: Admitted for chemotherapy overnight and did well. Some nausea this morning at 4:30 a.m., now improved. He used his BiPAP last night. Not sleeping well because of steroids. DISCHARGE PLAN: Go home today after he finishes his chemotherapy with followup next week. DISCHARGE MEDICATIONS: See plan, unchanged. He will receive Aloxi and Emend IV today for delayed nausea. [id number]/[facility] #: [id number] MTDD
[2016-09-04] MEDS ORDERED: Scopolamine 1.5 mg* PATCH TRANSDERM SCH (09:00)
== END 2016-09-02 17:30 | disposition home or self-care (01) ==
LOC: MEDTELE 09-01 12:37 → INTOOBSV 09-01 12:37 → MED 09-01 12:52
PROVIDERS: ADMIT Internal Medicine Hematology & Oncology; ATTEND Internal Medicine Hematology & Oncology
DX: Z51.11 Encounter for antineoplastic chemotherapy (principal); C83.30 Diffuse large B-cell lymphoma, unspecified site; R11.0 Nausea; D70.3 Neutropenia due to infection; R50.81 Fever presenting with conditions classified elsewhere; A41.51 Sepsis due to Escherichia coli [E. coli]; I10 Essential (primary) hypertension; E66.9 Obesity, unspecified; G47.30 Sleep apnea, unspecified; Z79.899 Other long term (current) drug therapy; Z88.1 Allergy status to other antibiotic agents
CPT/HCPCS: 36415; 36569; 80053; 82248; 85025; 96413; 96417; 99217; 99219; A9270-GY; G0378; J1100; J1200; J1453; J2469; J9045; J9181; J9208; J9209; J9280; J9310; Q0164

== ENCOUNTER 2016-09-04 02:17 | Observation (INO) | payer BC ==
[2016-09-04 03:25] LABS: Hematocrit 30 % (42-52); Hemoglobin 10.1 g/dl (14.0-18.0); Mean Corpuscular HGB Conc 33 g/dl (31-36); Mean Corpuscular Hemoglobin 28 pg (27-31); Mean Corpuscular Volume 84 fL (80-94); Mean Platelet Volume 7 um3 (7.4-10.4); Red Blood Count 3.58 10^6/ul (4.0-5.4); Red Cell Distribution Width 15 % (10.5-15); White Blood Count 19.4 10^3/ul (3.5-10.8)
[2016-09-04 03:26] LABS: Add Diff/Slide Review? Slide Review Added; Comments Flag Yes
[2016-09-04 03:34] LABS: Albumin 3.7 g/dL (3.2-5.2); BUN/Creatinine Ratio 15.6 (8-20); Calcium 8.7 mg/dL (8.6-10.3); EGFR African American 102.8 (>60); EGFR Non-African American 79.9 (>60); Globulin 2.1 g/dL (2-4); Magnesium 1.8 mg/dL (1.9-2.7); Potassium 3.7 mmol/L (3.5-5.0); Total Bilirubin 0.5 mg/dL (0.2-1.0); Total Protein 5.8 g/dL (6.4-8.9)
[2016-09-04 03:48] LABS: Urine Bacteria Absent (Absent); Urine Bilirubin Negative (Negative); Urine Glucose 1+(50 mg/dL) (Negative); Urine Nitrite Negative (Negative)
[2016-09-04] MEDS ORDERED: Ondansetron TAB* 4 MG PO PRN (04:32)
[2016-09-04] MEDS ORDERED: Acetaminophen TAB* 325 MG PO PRN (04:32)
[2016-09-04] MEDS ORDERED: Prochlorperazine TAB* 10 MG PO PRN (04:32)
[2016-09-04] MEDS ORDERED: LORazepam TAB(*) 0.5 MG PO PRN (04:32)
[2016-09-04] MEDS ORDERED: Benzonatate CAP* 100 MG PO PRN (04:40)
[2016-09-04] MEDS ORDERED: Azithromycin IV(*) 500 MG in NS 0.9% 250 ML* 250 ML IVPB SCH (05:00)
[2016-09-04] MEDS: Heparin VIAL(*) 5000 UNITS/ML VIAL (FIVE THOUSAND) SUBCUT SCH ×2 (06:52→14:51)
--- NOTE | 2016-09-04 06:57 | HP ---
HISTORY AND PHYSICAL: DATE OF ADMISSION: 09/04/16 DATE OF DICTATION: 09/04/16 CHIEF COMPLAINT: Congestion. HISTORY OF PRESENT ILLNESS: The patient is a 60-year-old gentleman who presents to [facility] with a chief complaint of congestion in his chest. Apparently, he was just in the hospital and had an E. coli bacteremia, which resolved. However, yesterday and today, he felt significant chest congestion. It got worse today, so he called his oncologist who told him to come to the ER. The patient denies any wheezing, not significant shortness of breath, and somewhat of a cough, but just feels like there is something there. No increased weakness. No increased weight loss. He did just finished chemotherapy. He has on Neupogen. However, it is unclear if he just took his first dose or not, and it appears he may have. In the ED, the patient was found to have a white count of over 19,000, with a left shift. PAST MEDICAL HISTORY: He has a past medical history significant for lymphoma, diffuse large B cell, depression, obesity, sleep apnea, hypertension, insulin resistance. ALLERGIES: He apparently has an allergy to CIPRO. MEDICATIONS: His current medications are: 1. Tylenol 500 mg every twice a day as needed. 2. Scopolamine patch 1.5 mg q.72 hours. 3. Compazine 10 mg every 6 hours as needed. 4. Zofran 4 mg every 6 hours as needed. 5. Lorazepam 0.5 mg twice a day as needed. 6. Neupogen 480 mcg subcu daily. 7. Lisinopril 10 mg daily. FAMILY HISTORY: Brother and father both have lymphoma. Father had prostate cancer. Father alive, brother with malignancy. Sister with malignancy , questionable bladder cancer. SOCIAL HISTORY: , lives in [place]. Two children. No tobacco, alcohol or recreational drug use. REVIEW OF SYSTEMS: A 14-point review of systems was completed with the patient. All pertinent positives and negatives are in the history of present illness, otherwise is negative. PHYSICAL EXAMINATION GENERAL: Pleasant gentleman, lying in bed, in no acute distress. VITAL SIGNS: Temperature 97.8 degrees, heart rate 77 beats per minute, respiratory rate 20 breaths per minute, pulse ox 95%, and blood pressure 117/48. HEENT: Normocephalic and atraumatic. Pupils are equal, round, and reactive to light. Moist mucous membranes. NECK: Supple. No JVD, bruits, palpable thyroid or lymphadenopathy. CHEST: Clear to auscultation and percussion bilaterally. CARDIOVASCULAR: S1 and S2 appreciated. ABDOMEN: Positive bowel sounds in all 4 quadrants. Soft, nontender, and nondistended. No hepatosplenomegaly. EXTREMITIES: No cyanosis, clubbing or edema. Pulses +2 bilaterally. NEUROLOGIC: Alert and oriented x3. Moves all extremities. SKIN: No rashes or abnormalities. DIAGNOSTIC STUDIES/LAB DATA: White count 19.4, hemoglobin 10.1, hematocrit 30 , platelets 440, and absolute neutrophil is 18.9. Sodium 136, potassium 3.7, chloride 105, CO2 of 23, BUN 15, creatinine 0.96, and glucose is 93. Urinalysis : +1 wbc's, +1 glucose. Negative influenza. Chest x-ray shows preliminarily no acute infiltrates. ASSESSMENT AND PLAN: 1. Bronchitis, likely diagnosis, but did not seem that symptomatic, but surprisingly he has elevated white count with a left shift. He did start taking Neupogen, but he thinks it has only been for one day. He does also appear to have gotten that 1 or 2 days in early August. I feel there is a quite jump from him, having it just 2 days ago. I will recheck his white count later today. I think we will probably be able to discharge later today and we will consult Oncology to see if he received any more Neupogen. I will place him on Zithromax 500 mg IV daily and Tessalon Perles for cough, but otherwise he does not need nebulizers and I believe he will be able to treat it at home. 2. Large B-cell lymphoma. Treatment as per Oncology. 3. FEN. Regular diet. 4. DVT prophylaxis. Heparin subcu. 6. The patient is a full code. TIME SPENT: Over 75 minutes were spent on this H and P, more than 40 minutes of which were spent in direct [id number] contact with the patient, in evaluation, physical exam, counseling, and coordination of care. CC: Dr. Obinna Cano * [id number]/[facility] #: [id number] MTDD
--- NOTE | 2016-09-04 07:39 | RAD ---
HISTORY: Cough, fever COMPARISONS: August 20, 2016 VIEWS: 2: Frontal dual-energy and lateral views of the chest. FINDINGS: CARDIOMEDIASTINAL SILHOUETTE: The cardiomediastinal silhouette is normal. WANDA: The wanda are normal. PLEURA: The costophrenic angles are sharp. No pleural abnormalities are noted. LUNG PARENCHYMA: There is hyperinflation with flattening of the diaphragm and expansion of the AP diameter of the chest. ABDOMEN: The upper abdomen is clear. There is no subphrenic gas. BONES AND SOFT TISSUES: Degenerative changes are noted OTHER: None. IMPRESSION: HYPERINFLATION, CONSISTENT WITH COPD. NO ACTIVE CARDIOPULMONARY DISEASE.
[2016-09-04] MEDS ORDERED: Magnesium Sulfate 2 GM IV* 2 GM/50 ML BAG IVPB ONE (08:38)
[2016-09-04] MEDS ORDERED: Lisinopril TAB* 10 MG PO SCH (09:00)
[2016-09-04] MEDS ORDERED: Scopolamine 1.5 mg* PATCH TRANSDERM SCH (09:00)
[2016-09-04 13:06] VITALS: BP 124/68
[2016-09-04 15:24] LABS: Hematocrit 29 % (42-52); Hemoglobin 9.5 g/dl (14.0-18.0); Mean Corpuscular HGB Conc 32 g/dl (31-36); Mean Corpuscular Hemoglobin 28 pg (27-31); Mean Corpuscular Volume 85 fL (80-94); Mean Platelet Volume 7 um3 (7.4-10.4); Red Blood Count 3.44 10^6/ul (4.0-5.4); Red Cell Distribution Width 15 % (10.5-15); White Blood Count 21.4 10^3/ul (3.5-10.8)
[2016-09-04 15:27] LABS: Comments Flag Yes
--- NOTE | 2016-09-05 08:31 | DS ---
DISCHARGE SUMMARY: DATE OF ADMISSION: 09/04/16 DATE OF DISCHARGE: 09/04/16 HOSPITAL STATUS: Observation on clinical decision unit. PROVIDER: Frederick Chapa NP ATTENDING PHYSICIAN: Dr. Boyer * (report dictated by Frederick Chapa NP). PRIMARY CARE PROVIDER: Oncologist, Dr. Cano. PRIMARY DIAGNOSES: 1. Bronchitis with possible mild chronic obstructive pulmonary disease exacerbation. 2. Hypomagnesium. 3. Mildly elevated AST. SECONDARY DIAGNOSES: 1. Lymphoma, diffuse large B-cell. 2. Depression. 3. Obesity. 4. Sleep apnea. 5. Hypertension. 6. Insulin resistance. DISCHARGE MEDICATIONS: 1. Acetaminophen 500 mg p.o. b.i.d. p.r.n. 2. Scopolamine patch 1.5 mg q.72 hours. 3. Compazine 10 mg q.6 hours p.r.n. 4. Zofran 4 mg q.6 hours p.r.n. 5. Lorazepam 0.5 mg b.i.d. p.r.n. 6. Neupogen 480 mcg subcu daily. 7. Lisinopril 10 mg p.o. daily. HISTORY OF PRESENT ILLNESS AND HOSPITAL COURSE: Please see history and physical by Dr. Fox for full admission details, but in summary, this is a 60- year-old male who presented to [facility] with chief complaint of congestion in his chest. The patient was recently hospitalized earlier this month with a neutropenic fever, which was found to be secondary to E. coli sepsis, which resolved. He underwent chemo. On September 01, he was admitted overnight for chemotherapy, did well, and was discharged home the next morning on 09/02/16. The patient on the evening of September 02 noted he had some chest congestion with an increase in sputum production and cough. Yesterday, he continued to have feeling of chest congestion, became worried, and contacted Dr. Cano, who thought he should come to the emergency department for further evaluation. The patient denies any fevers or chills and reports overall he feels good. He suspects that he just has a mild viral illness. His chest x- ray in the emergency department showed impression "hyperinflation, consistent with COPD. No active cardiopulmonary disease." The patient reports that at his baseline, he has a cough and sputum production. He thinks it is now maybe "mildly worse." In the emergency department, he was noted to have a white blood cell count of 19.4 and due to this, the Hospital Medicine was asked to evaluate the patient for admission. It was thought possibly he has bronchitis and was brought in this morning on observation to the clinical decision unit with a dose of azithromycin. We planned to recheck labs later this afternoon. The patient's CBC was rechecked this afternoon and was noted to have a white blood cell count slightly higher at 21.4. On evaluation, the patient is alert and oriented x3. He appears well, nontoxic. The patient would like to go home and reports that he overall feels well. I discussed the case with Dr. Qiu , oncologist, who agrees the patient can be discharged to home. His elevation in white blood cell count is thought to be secondary to the Neupogen the patient took yesterday afternoon. His elevation in white blood cell count is anticipated to occur. The patient had no leukocytosis. His influenza A and B were negative. I did discuss continuing antibiotics with Dr. Qiu and states the patient can be sent home to finish the Z-Elmer. Please note, blood cultures are pending at the time of dictation. The patient was given magnesium replacement. It is noted that his AST is very mild elevated at 44 and is noted to be above his baseline. Normal high range is 39. PHYSICAL EXAMINATION: Vital Signs: Temperature 97.8, respirations 16, O2 sat 100% on room air, blood pressure 124/68. Appearance: A 60- year-old male lying in bed. Alert and oriented x3, in no acute distress. Very pleasant on exam. Nontoxic appearing. HEENT: Head is normocephalic, atraumatic. Pupils equal and reactive to light. Neck: Supple. Cardiac: S1, S2. There are no murmurs, rubs, or gallops appreciated. Respiratory: Lungs are clear to auscultation bilaterally. Good aeration throughout. No wheezes, rhonchi, or rales noted. Extremities: Moves all extremities equally. Skin: Warm, pink, dry. Neuro: Alert and oriented x3. Psych: Appropriate to situation. DIAGNOSTIC STUDIES/LAB DATA: WBC 21.4, RBC 3.44, Hgb 9.5, Hct 29, MCV 85, MCH 28, MCHC 32, RDW 15, platelet count 395. Sodium 136, potassium 3.7, chloride 105, carbon dioxide 23, anion gap 8, BUN 15, creatinine 0.96, glucose 93, lactic acid 1.2, calcium 8.7, magnesium 1.8. Total bilirubin 0.50, AST 44, ALT 51, alkaline phosphatase 56. Total protein 5.8. DISCHARGE PLAN: The patient is stable for discharge home, and follow up with Dr. Cano as previously scheduled. The patient was instructed if he has any further worsening or concerning symptoms to call the oncology service or return to the emergency department. TIME SPENT: Approximately 45 minutes was spent on this discharge. FREDERICK CHAPA, XAVI [id number]/[facility] #: [id number] LIT
[2016-09-07] MEDS ORDERED: Scopolamine PATCH Remove* 1 NOTE MISC PATCH OFF SCH (09:00)
--- NOTE | 2016-10-17 01:53 | ED ---
Rivas Najera Michael, scribed for Eliud Mobley MD on 09/04/16 at 0242 . Respiratory - HPI Summary HPI Summary: 60 y/o male comes to the ED presenting with a productive cough and chest congestion that started one day ago after his chemotherapy treatment. The pt describes the sputum as white, and his symptoms are different from his last chemotherapy treatment. He is in around 2 of 4 for chemotherapy. The pt denies SOB, n/v, and fever. The PMHx is significant for b-cell lymphoma. - History of Current Complaint Chief Complaint: EDUpperRespComplaint Stated Complaint: SOB//DR WONG SENT Hx Obtained From: Patient, Medical Records Onset/Duration: Sudden Onset, Lasting Days, Still Present Timing: Constant Initial Severity: Moderate Current Severity: Moderate Pain Intensity: 0 Character: Cough (Productive) Sputum Color: White Aggravating Factor(s): Nothing Alleviating Factor(s): Nothing Associated Signs and Symptoms: Negative - fever. SOB. n/v. - Allergy/Home Medications Allergies/Adverse Reactions: Allergies Allergy/AdvReac Type Severity Reaction Status Date / Time Ciprofloxacin Allergy Unknown Unknown Verified 10/07/16 15:54 Reaction Details PMH/Surg Hx/FS Hx/Imm Hx Endocrine/Hematology History: Reports: Hx Bone Marrow Disease - 2009 & 2012, CHEMO Denies: Hx Diabetes Cardiovascular History: Reports: Hx Hypertension - ON DAILY MEDS, Other Cardiovascular Problems/Disorders - DX'D W/HEART MURMUR A CHILD, NO SX Respiratory History: Reports: Hx Sleep Apnea - Cpap History: Denies: Hx Dialysis, Hx Renal Disease Musculoskeletal History: Reports: Hx Arthritis - OSTEOARTHRITIS: KNEES, BACK Sensory History: Reports: Hx Contacts or Glasses Opthamlomology History: Reports: Hx Contacts or Glasses Neurological History: Reports: Other Neuro Impairments/Disorders - 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 2013 UPPER RT ARM BIOPSY, POWERPORT INSERSION. 05/2016 POWER PORT [place] [facility] [place] MASS [place]OPSY Hx Anesthesia Reactions: No - 1999 WOKE UP WITH LOW BP Infectious Disease History: No Infectious Disease History: Denies: Traveled Outside the [place] in Last 30 Days - Family History Known Family History: Positive: Other - [place] - Social History Occupation: Retired Lives: Alone Alcohol Use: Rare Alcohol Amount: USUALLY 1-2 /WK Substance Use Type: Reports: None Hx Tobacco Use: Yes Smoking Status (MU): Former Smoker Type: Cigarettes Amount Used/How Often: 1PPD 20 YRS Have You Smoked in the Last Year: No Review of Systems Negative: Fever Positive: Cough, Other - chest congestion. Negative: Shortness Of Breath Negative: Vomiting, Nausea All Other Systems Reviewed And Are Negative: Yes Physical Exam Triage Information Reviewed: Yes Vital Signs On Initial Exam: Initial Vitals Temp Pulse Resp BP Pulse Ox 97.3 F 89 16 129/68 98 09/04/16 02:20 09/04/16 02:20 09/04/16 02:20 09/04/16 02:20 09/04/16 02:20 Vital Signs Reviewed: Yes Appearance: Positive: Well-Appearing, No Pain Distress - mild sob Skin: Positive: Warm Head/Face: Positive: Normal Head/Face Inspection Eyes: Positive: KEO ENT: Positive: Hearing grossly normal Neck: Positive: Supple Respiratory/Lung Sounds: Positive: Decreased Breath Sounds Cardiovascular: Positive: Tachycardia Abdomen Description: Positive: Nontender, Soft Bowel Sounds: Positive: Present Diagnostics - Vital Signs Vital Signs Temp Pulse Resp BP Pulse Ox 09/04/16 02:20 97.3 F 89 16 129/68 98 - Laboratory Lab Results: Lab Results 09/04/16 09/04/16 09/04/16 Range/Units 03:05 03:05 03:05 WBC 19.4 H (3.5-10.8) 10^3/ul RBC 3.58 L (4.0-5.4) 10^6/ul Hgb 10.1 L (14.0-18.0) g/dl Hct 30 L (42-52) % MCV 84 (80-94) fL MCH 28 (27-31) pg MCHC 33 (31-36) g/dl RDW 15 (10.5-15) % Plt Count 440 (150-450) 10^3/ul MPV 7 L (7.4-10.4) um3 Neut % (Auto) 97.6 H (38-83) % Lymph % (Auto) 1.1 L (25-47) % Haralson % (Auto) 0.7 L (1-9) % Eos % (Auto) 0.4 (0-6) % Baso % (Auto) 0.2 (0-2) % Absolute Neuts (auto) 18.9 H (1.5-7.7) 10^3/ul Absolute Lymphs (auto) 0.2 L (1.0-4.8) 10^3/ul Absolute Monos (auto) 0.1 (0-0.8) 10^3/ul Absolute Eos (auto) 0.1 (0-0.6) 10^3/ul Absolute Basos (auto) 0 (0-0.2) 10^3/ul Absolute Nucleated RBC 0 10^3/ul Nucleated RBC % 0 Sodium 136 (133-145) mmol/L Potassium 3.7 (3.5-5.0) mmol/L Chloride 105 (101-111) mmol/L Carbon Dioxide 23 (22-32) mmol/L Anion Gap 8 (2-11) mmol/L BUN 15 (6-24) mg/dL Creatinine 0.96 (0.67-1.17) mg/dL Est GFR ( Amer) 102.8 (>60) Est GFR (Non-Af Amer) 79.9 (>60) BUN/Creatinine Ratio 15.6 (8-20) Glucose 93 (70-100) mg/dL Lactic Acid 1.2 (0.5-2.0) mmol/L Calcium 8.7 (8.6-10.3) mg/dL Magnesium 1.8 L (1.9-2.7) mg/dL Total Bilirubin 0.50 (0.2-1.0) mg/dL AST 44 H (13-39) U/L ALT 51 (7-52) U/L Alkaline Phosphatase 56 (34-104) U/L Total Protein 5.8 L (6.4-8.9) g/dL Albumin 3.7 (3.2-5.2) g/dL Globulin 2.1 (2-4) g/dL Albumin/Globulin Ratio 1.8 (1-3) Urine Color Urine Appearance Urine pH (5-9) Ur Specific Chadwick (1.010-1.030) Urine Protein (Negative) Urine Ketones (Negative) Urine Blood (Negative) Urine Nitrate (Negative) Urine Bilirubin (Negative) Urine Urobilinogen (Negative) Ur Leukocyte Esterase (Negative) Urine WBC (Auto) (Absent) Urine RBC (Auto) (Absent) Ur Transition Epith Cell (Absent) Urine Bacteria (Absent) Urine Glucose (Negative) Influenza A (Rapid) (Negative) Influenza B (Rapid) (Negative) 09/04/16 09/04/16 Range/Units 03:14 03:30 WBC (3.5-10.8) 10^3/ul RBC (4.0-5.4) 10^6/ul Hgb (14.0-18.0) g/dl Hct (42-52) % MCV (80-94) fL MCH (27-31) pg MCHC (31-36) g/dl RDW (10.5-15) % Plt Count (150-450) 10^3/ul MPV (7.4-10.4) um3 Neut % (Auto) (38-83) % Lymph % (Auto) (25-47) % Haralson % (Auto) (1-9) % Eos % (Auto) (0-6) % Baso % (Auto) (0-2) % Absolute Neuts (auto) (1.5-7.7) 10^3/ul Absolute Lymphs (auto) (1.0-4.8) 10^3/ul Absolute Monos (auto) (0-0.8) 10^3/ul Absolute Eos (auto) (0-0.6) 10^3/ul Absolute Basos (auto) (0-0.2) 10^3/ul Absolute Nucleated RBC 10^3/ul Nucleated RBC % Sodium (133-145) mmol/L Potassium (3.5-5.0) mmol/L Chloride (101-111) mmol/L Carbon Dioxide (22-32) mmol/L Anion Gap (2-11) mmol/L BUN (6-24) mg/dL Creatinine (0.67-1.17) mg/dL Est GFR ( Amer) (>60) Est GFR (Non-Af Amer) (>60) BUN/Creatinine Ratio (8-20) Glucose (70-100) mg/dL Lactic Acid (0.5-2.0) mmol/L Calcium (8.6-10.3) mg/dL Magnesium (1.9-2.7) mg/dL Total Bilirubin (0.2-1.0) mg/dL AST (13-39) U/L ALT (7-52) U/L Alkaline Phosphatase (34-104) U/L Total Protein (6.4-8.9) g/dL Albumin (3.2-5.2) g/dL Globulin (2-4) g/dL Albumin/Globulin Ratio (1-3) Urine Color Yellow Urine Appearance Cloudy Urine pH 7.0 (5-9) Ur Specific Chadwick 1.012 (1.010-1.030) Urine Protein 1+(30 mg/dl) H (Negative) Urine Ketones Negative (Negative) Urine Blood Negative (Negative) Urine Nitrate Negative (Negative) Urine Bilirubin Negative (Negative) Urine Urobilinogen Negative (Negative) Ur Leukocyte Esterase Negative (Negative) Urine WBC (Auto) 1+(6-10/hpf) H (Absent) Urine RBC (Auto) Trace(0-2/hpf) (Absent) Ur Transition Epith Cell Present H (Absent) Urine Bacteria Absent (Absent) Urine Glucose 1+(50 mg/dl) H (Negative) Influenza A (Rapid) Negative (Negative) Influenza B (Rapid) Negative (Negative) Result Diagrams: 09/04/16 15:18 09/04/16 03:05 Lab Statement: Any lab studies that have been ordered have been reviewed, and results considered in the medical decision making process. - Radiology CXR Xray Interpretation: No Acute Changes - no infiltrate Radiology Interpretation Completed By: ED Physician Disposition - Course Course Of Treatment: consulted Dr. Fox at 0415 pt is accepted as admission. - Diagnoses Provider Diagnoses: Dyspnea - Physician Notifications Instructed by Provider To: Admit As Inpatient Discharge - Discharge Plan Condition: Stable Disposition: ADMITTED TO [facility] Discharge Disposition Comment: accepted as an admission by Dr. Fox The documentation as recorded by the Rivas dubois Michael accurately reflects the service I personally performed and the decisions made by , Eliud Mobley MD.
== END 2016-09-04 18:30 | disposition home or self-care (01) ==
LOC: ED 02:17 → MEDTELE 04:40
PROVIDERS: ADMIT Internal Medicine; ATTEND Hospitalist
DX: J44.1 Chronic obstructive pulmonary disease with (acute) exacerbation (principal); J20.9 Acute bronchitis, unspecified; J44.0 Chronic obstructive pulmonary disease with (acute) lower respiratory infection; E83.42 Hypomagnesemia; E66.9 Obesity, unspecified; R79.89 Other specified abnormal findings of blood chemistry; C83.30 Diffuse large B-cell lymphoma, unspecified site; G47.30 Sleep apnea, unspecified; Z79.899 Other long term (current) drug therapy; Z88.1 Allergy status to other antibiotic agents
CPT/HCPCS: 36415; 71020; 80053; 81003; 81015; 83605; 83735; 85025; 87040; 87502; 96365; 96366; 96367; 96372; 99284; A9270-GY; G0378; J0456; J1644; J3475

== ENCOUNTER 2016-09-21 08:09 | Inpatient (IN) | payer BC ==
[2016-09-22] MEDS ORDERED: Ondansetron TAB* 4 MG PO PRN (10:14)
[2016-09-22] MEDS ORDERED: Acetaminophen TAB* 325 MG PO PRN (10:14)
[2016-09-22] MEDS ORDERED: Prochlorperazine TAB* 10 MG PO PRN (10:14)
[2016-09-22] MEDS ORDERED: LORazepam TAB(*) 0.5 MG PO PRN (10:14)
[2016-09-22] MEDS ORDERED: NS 0.9% 1000 ML* 1,000 ML IV ONE ×2 (11:30→14:00)
[2016-09-22] MEDS ORDERED: MESNA IVPB ONE (13:30)
[2016-09-22] MEDS ORDERED: NS 0.9% IVPB ONE (13:30)
[2016-09-22] MEDS ORDERED: IFOSFAMIDE IVPB ONE (13:30)
[2016-09-22] MEDS ORDERED: Scopolamine 1.5 mg* PATCH TRANSDERM PRN (13:32)
[2016-09-22] MEDS: NS 0.9% 1000 ML* 1,000 ML IV SCH (13:45)
[2016-09-22] MEDS: Heparin VIAL(*) 5000 UNITS/ML VIAL (FIVE THOUSAND) SUBCUT SCH ×3 (15:54→21:31)
[2016-09-22] MEDS: Sulfamethox/Trimethoprim DS 800/160* TAB PO SCH (21:31)
[2016-09-23] MEDS: NS 0.9% 1000 ML* 1,000 ML IV SCH ×2 (00:08→11:42)
[2016-09-23] MEDS: Ondansetron INJ* 2 MG/ML VIAL IV PRN ×2 (00:52→11:42)
[2016-09-23] MEDS: Heparin VIAL(*) 5000 UNITS/ML VIAL (FIVE THOUSAND) SUBCUT SCH ×2 (06:34→15:02)
[2016-09-23] MEDS: Sulfamethox/Trimethoprim DS 800/160* TAB PO SCH (08:52)
[2016-09-23] MEDS ORDERED: Lisinopril TAB* 10 MG PO SCH (09:00)
--- NOTE | 2016-09-23 11:13 | PN ---
Progress Note - Progress Note SOAP: Subjective: []Doing well, nausea last night. Acetaminophen (Tylenol Tab*) 487.5 mg PO BID PRN PRN Reason: PAIN Dexamethasone (Decadron Tab*) 8 mg PO ONCE ONE Stop: 09/23/16 11:16 Filgrastim-Sndz (Zarxio*) 480 mcg SUBCUT DAILY [facility] Heparin Sodium (Porcine) (Heparin Vial(*)) 5,000 units SUBCUT Q8HR [facility] Last Admin: 09/23/16 06:34 Dose: 5,000 units Ifosfamide 13,550 mg/ Mesna 13 (,550 mg/ Sodium Chloride) 1,000 mls @ 41.667 mls/hr IVPB ONCE@1330 ONE Stop: 09/23/16 13:29 Last Admin: 09/22/16 14:00 Dose: 41.667 mls/hr Etoposide 270 mg/ Sodium (Chloride) 763.5 mls @ 763.5 mls/hr IVPB ONCE ONE Stop: 09/23/16 14:59 Dexamethasone Sodium Phosphate (8 mg/ Sodium Chloride) 52 mls @ 156 mls/hr IVPB ONCE ONE Stop: 09/23/16 13:49 Sodium Chloride (Ns 0.9% 1000 Ml*) 1,000 mls @ 100 mls/hr IV PER RATE [facility] Last Admin: 09/23/16 00:08 Dose: 100 mls/hr Sodium Chloride (Ns 0.9% 1000 Ml*) 1,000 mls @ 500 mls/hr IV 1400 ONE Stop: 09/23/16 15:59 Fosaprepitant 150 mg/ Sodium (Chloride) 150 mls @ 300 mls/hr IVPB ONCE ONE Stop: 09/23/16 11:35 Palonosetron 0.25 mg/ Sodium (Chloride) 55 mls @ 165 mls/hr IVPB ONCE ONE Stop: 09/23/16 11:26 Lisinopril (Prinivil Tab*) 10 mg PO DAILY [facility] Last Admin: 09/23/16 08:52 Dose: 10 mg Lorazepam (Ativan Tab(*)) 0.5 mg PO BID PRN PRN Reason: ANXIETY Last Admin: 09/23/16 01:00 Dose: 0.5 mg Ondansetron HCl (Zofran Tab*) 4 mg PO Q6HR PRN PRN Reason: NAUSEA Last Admin: 09/22/16 23:55 Dose: 4 mg Ondansetron HCl (Zofran Inj*) 8 mg IV Q8H PRN PRN Reason: NAUSEA Last Admin: 09/23/16 00:52 Dose: 8 mg Prochlorperazine (Compazine Tab*) 10 mg PO Q6H PRN PRN Reason: NAUSEA Last Admin: 09/22/16 21:54 Dose: 10 mg Scopolamine (Transderm-Scop 1.5 Mg Patch*) 1 patch TRANSDERM Q72H PRN PRN Reason: NAUSEA Trimethoprim/Sulfamethoxazole (Bactrim Ds 800/160 Tab*) 1 tab PO BID [facility] Last Admin: 09/23/16 08:52 Dose: 1 tab Objective: [] Vital Signs Temp Pulse Resp BP Pulse Ox 97.3 F 72 16 141/72 100 09/23/16 07:28 09/23/16 07:28 09/23/16 07:28 09/23/16 07:28 09/23/16 07:28 HEENT - no thrush, moist CTA RRR S1S2 obease, NT/ND EXT no C/C/E neuro - non focal Assessment: []Cycle 3 RICE 1. Discharge home today after completes chemotherapy. 2. IV emend, Aloxi and Dex today 3. Scopolamine at home, prn Zofran and compazine 4. Follow up 4 days in clinc Plan: []
[2016-09-23] MEDS ORDERED: Dexamethasone TAB* 6 MG PO ONE (11:15)
[2016-09-23] MEDS ORDERED: Palonosetron* 0.25 MG in NS 0.9% 50 ML* 50 ML IVPB ONE (12:00)
[2016-09-23] MEDS ORDERED: Fosaprepitant IV* 150 MG in NS 0.9% 250 ML* 145 ML IVPB ONE (12:30)
[2016-09-23] MEDS ORDERED: Dexamethasone IV* 8 MG in NS 0.9% 50 ML* 50 ML IVPB ONE (13:30)
[2016-09-23] MEDS ORDERED: NS 0.9% IVPB ONE (14:00)
[2016-09-23] MEDS ORDERED: NS 0.9% 1000 ML* 1,000 ML IV ONE (14:00)
[2016-09-23] MEDS ORDERED: ETOPOSIDE IVPB ONE (14:00)
[2016-09-23 15:08] VITALS: BP 147/71
--- NOTE | 2016-09-24 02:15 | HP ---
HISTORY AND PHYSICAL FOR OBSERVATION STAY: DATE OF ADMISSION: 09/22/16 ADDENDUM: Admitted yesterday for overnight chemotherapy. He had some nausea overnight and received IV Zofran, otherwise tolerated very well and will be discharged home today as planned for followup next Monday. Prior to discharge , we will give an additional dose of Aloxi as well as IV Emend and 1 dose of IV dexamethasone. He will call our office over the weekend with any difficulties. Take Neupogen as directed. [id number]/[facility] #: [id number] MTDD
[2016-09-24] MEDS ORDERED: FILGRASTIM-SNDZ* 480 MCG/0.8 ML SYRINGE SUBCUT SCH (09:00)
--- NOTE | 2016-10-15 00:36 | DS ---
DISCHARGE SUMMARY: ADDENDUM: REASON FOR ADMISSION: Cycle 3 of RICE chemotherapy. HOSPITAL COURSE: This is an addendum to the history and physical written yesterday on 09/22/16. He did fine overnight with his chemotherapy. He had some nausea and received 1 dose of IV Zofran, oth erwise tolerated well and is being discharged home today with plan to follow up next Monday. Prior to discharge, we will give an additional dose of Aloxi as well as IV Emend and 1 dose of dexamethas one. He will call my office over the weekend with any additional questions. DISCHARGE MEDICATIONS: Same as documented on September 22 with the addition of subcu Neupogen for 10 d ays. [id number]/[facility] #: [id number]
== END 2016-09-23 17:20 | disposition home or self-care (01) | DRG 693 ==
LOC: MED 09-22 12:49
PROVIDERS: ADMIT Internal Medicine Hematology & Oncology; ATTEND Internal Medicine Hematology & Oncology
DX: Z51.11 Encounter for antineoplastic chemotherapy (principal); C83.30 Diffuse large B-cell lymphoma, unspecified site; Z68.43 Body mass index [BMI] 50.0-59.9, adult; J40 Bronchitis, not specified as acute or chronic; F32.9 Major depressive disorder, single episode, unspecified; E66.01 Morbid (severe) obesity due to excess calories; G47.33 Obstructive sleep apnea (adult) (pediatric); Z88.1 Allergy status to other antibiotic agents; Z79.1 Long term (current) use of non-steroidal anti-inflammatories (NSAID); Z79.899 Other long term (current) drug therapy; Z80.7 Family history of other malignant neoplasms of lymphoid, hematopoietic and related tissues; Z80.42 Family history of malignant neoplasm of prostate; Z80.52 Family history of malignant neoplasm of bladder
CPT/HCPCS: 36415; 36569; 36591; 80053; 85025; 86850; 86900; 86901; 86922; 96367; 96375; 96413; 96415; 96417; 99213; 99217; 99222; A9270-GY; C1751; G0463; J1100; J1200; J1453; J1644; J2405; J2469; J9045; J9181; J9209; J9280; J9310; P9040; Q0164; Q5101 ZA

== ENCOUNTER 2022-07-18 14:47 | Observation (INO) ==
[2022-07-18] MEDS ORDERED: Ondansetron 4 mg VIAL 2 MG/ML 2 ml VIAL IV PRN (17:04)
[2022-07-18] MEDS ORDERED: Heparin 5000 UNITS/ML 1 mL VIAL SUBCUT SCH (22:00)
[2022-07-19 02:43] VITALS: BP 111/54
== END 2022-07-19 02:40 | disposition home or self-care (01) ==
LOC: CHOACORT 14:47 → MEDTELE 14:47
PROVIDERS: ADMIT Internal Medicine Hematology & Oncology; ATTEND Internal Medicine Hematology & Oncology